=== PATIENT | male | born 1970 | race Caucasian/White ===

== ENCOUNTER 2018-09-24 16:00 | Emergency (ER) | payer MEDICAID ==
[2018-09-24] MEDS: DEXAMETHASONE 10 MG/ML 1 ML INJ IM (18:42)
[2018-09-24] MEDS: ACETAMINOPHEN 500 MG TAB PO (18:43)
[2018-09-24] MEDS: CYCLOBENZAPRINE 10 MG TAB PO (18:43)
[2018-09-24] MEDS: KETOROLAC 60 MG INJ IM (18:43)
[2018-09-24 18:53] LABS: ADD UMIC NO; UR ASCORBIC ACID NEGATIVE (NEGATIVE); UR BILIRUBIN (Dip) NEGATIVE (NEGATIVE); UR BLOOD (Dip) NEGATIVE (NEGATIVE); UR CLARITY CLEAR (CLEAR); UR COLOR STRAW (YELLOW); UR GLUCOSE (Dip) NEGATIVE (NEGATIVE); UR KETONES (Dip) NEGATIVE (NEGATIVE); UR LEUKOCYTE ESTERASE (Dip) NEGATIVE Leu/ul (NEGATIVE); UR NITRITE (Dip) NEGATIVE (NEGATIVE); UR SPECIFIC GRAVITY (Dip) 1.005 (1.003-1.030); UR TOTAL PROTEIN (Dip) NEGATIVE (NEGATIVE); UR UROBILINOGEN (Dip) NEGATIVE (NEGATIVE)
== END 2018-09-24 19:50 | disposition home or self-care (01) ==
LOC: FTE 16:00
DX: S23.3XXA Sprain of ligaments of thoracic spine, initial encounter (principal); S33.9XXA Sprain of unspecified parts of lumbar spine and pelvis, initial encounter; V53.5XXA Driver of pick-up truck or van injured in collision with car, pick-up truck or van in traffic accident, initial encounter
CPT/HCPCS: 81003; 96372; 99284-25